=== PATIENT | male | born 1985 | race African-American/Black ===

== ENCOUNTER 2021-12-08 01:31 | Emergency (ER) | payer SELFPAY ==
--- NOTE | 2021-12-08 02:37 | NUR ---
DR. LAURA MCDERMOTT AT PT'S BEDSIDE FOR EVAL
--- NOTE | 2021-12-08 02:37 | NUR ---
EMT AT PT'S BEDSIDE FOR EKG
--- NOTE | 2021-12-08 03:27 | NUR ---
Patient discharged to home in stable condition. Written and verbal after care instructions given. Patient verbalizes understanding of instruction.
== END 2021-12-08 03:31 | disposition home or self-care (01) ==
LOC: ER 01:37
DX: G47.8 Other sleep disorders (principal)

== ENCOUNTER 2022-04-27 04:17 | Emergency (ER) | payer SELFPAY ==
[~2022-04-27] VITALS: Ht 185.4 cm; Wt 59.0 kg
--- NOTE | 2022-04-27 04:40 | NUR ---
TO ER BED 7. BIBROOMMATE FOR SYNCOPAL EPISODE WHILE GOING TO THE BATHROOM, FELL AND HIT HIS FOREHEAD. PT IS ALERT AND ORIENTED. RR EVEN AND NONLABORED. CONNECTED TO MONITOR
[2022-04-27] MEDS ORDERED: IV NS 0.9% 1,000 ML BAG IV ONE (05:00)
--- NOTE | 2022-04-27 05:15 | NUR ---
IV LINE ESTABLISHED, [id number]
--- NOTE | 2022-04-27 05:15 | NUR ---
BLOOD COLLECTED AND SENT TO LAB
--- NOTE | 2022-04-27 05:18 | NUR ---
WARM BLANKET PROVIDED FOR COMFORT
[2022-04-27 05:34] LABS: BASOPHILS % (AUTO) 0.5 % (0.0-2.0); HEMATOCRIT 42 % (39-51); HEMOGLOBIN 13.6 g/dL (13.5-17.5); LYMPHOCYTES # (AUTO) 1.2 K/uL (0.8-4.8); LYMPHOCYTES % (AUTO) 26.2 % (20.0-44.0); MEAN CORPUSCULAR HGB CONC 33 g/dl (31.0-36.0); MEAN CORPUSCULAR VOLUME 85 fL (80-96); MONOCYTES # (AUTO) 0.3 K/uL (0.1-1.30); MONOCYTES % (AUTO) 6.7 % (2.0-12.0); NEUTROPHILS # (AUTO) 2.9 K/uL (1.8-8.9); NEUTROPHILS % (AUTO) 62.6 % (43.0-81.0); PLATELET COUNT (AUTO) 227 K/uL (150-450); RED BLOOD CELL COUNT(AUTO) 4.93 MIL/uL (4.5-6.0); WHITE BLOOD COUNT (AUTO) 4.6 K/uL (4.3-11.0)
--- NOTE | 2022-04-27 05:40 | NUR ---
PT TAKEN TO CT VIA [facility]
[2022-04-27 05:52] LABS: CALCIUM, SERUM 8.9 mg/dL (8.5-10.1); CARBON DIOXIDE 28 mmol/L (21-32); CHLORIDE 105 mmol/L (98-107); GLUCOSE 90 mg/dL (74-106); SODIUM SERUM 138 mmol/L (136-145); UREA NITROGEN, BLOOD 14 mg/dL (7-18)
--- NOTE | 2022-04-27 07:11 | NUR ---
Patient discharged to home in stable condition. Written and verbal after care instructions given. Patient verbalizes understanding of instruction. IV removed. Catheter intact and site benign. Pressure and 4x4 applied to site. No bleeding noted.
--- NOTE | 2022-04-27 07:11 | NUR ---
Patient discharged to home in stable condition. Written and verbal after care instructions given. Patient verbalizes understanding of instruction.
[2022-04-27 07:13] VITALS: BP 122/82
== END 2022-04-27 07:12 | disposition home or self-care (01) ==
LOC: ER 04:19
DX: R55 Syncope and collapse (principal)
CPT/HCPCS: 99285; 96360; 93005; 71045; 70450; 85025; 80048; 36415; 84484; 80320; J7030; G0480